=== PATIENT | male | born 1970 | race Caucasian/White ===

== ENCOUNTER → 2021-02-08 16:29 | Outpatient (CLI) | payer OTHER, SELFPAY ==
--- NOTE | 2021-02-08 16:44 | DI.RAD.S_ITS ---
PROCEDURE: XR FOOT RT MIN 3V INDICATIONS: RT FOOT/TOE PAIN TECHNIQUE: 3 views of the foot were acquired. COMPARISON: None. FINDINGS: Bones: No fractures or dislocations. There are yzur-yw-azvlyzqi osteoarthritic changes at the 1st metatarsophalangeal joint with mild to moderate joint space narrowing and subchondral sclerosis. There is also minimal narrowing of the 1st interphalangeal joint. No suspicious bony lesions. Soft tissues: There is a small calcification along the lateral aspect of the 1st metatarsophalangeal joint which may represent sequelae of a prior avulsion injury. There is mild soft tissue swelling medial to the 1st metatarsophalangeal joint. IMPRESSION: 1. 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 2. Small ossicle along the lateral aspect of the 1st MTP is nonspecific and may represent sequelae of a prior avulsion injury. Dictated by: Manav Anderson M.D. on 02/09/2021 at 11:12 Approved by: Manav Anderson M.D. on 02/09/2021 at 11:14
== END ==
PROVIDERS: Referring Provider Family Medicine; Visit Provider Family Medicine
DX: M79.674 Pain in right toe(s) (principal); L40.52 Psoriatic arthritis mutilans
CPT/HCPCS: 73630

== ENCOUNTER 2025-07-20 22:30 | Emergency (ER) | payer OTHER, SELFPAY ==
[2025-07-20 22:33] VITALS: BP 135/87; PULSE 63; RESP 18; TEMP 36.8; O2SAT 99; BMI 20.1
--- NOTE | 2025-07-20 22:47 | ED_ITS ---
HPI - Allergic Reaction General Chief complaint: Allergic Reaction Stated complaint: Allergic reaction Time Seen by Provider: 07/20/25 22:47 Source: patient Mode of arrival: Ambulatory History of Present Illness HPI narrative: Patient is a 55 year old man who presents to the ER again for concerns of an allergic reaction. He presented to walk-in clinic on 07/17 acute bacterial conjunctivitis and was prescribed neomycin polymyxin eye drops. He also had chronic sinusitis and was given a Medrol Dosepak and moxifloxacin at that time. He re-presented on 07/19 with concerns for possible allergic reaction which he stated was crusty eyes and itchy scalp and burning sensation with extreme irritation. His eyedrops were then transition to erythromycin ointment which he has been utilizing however he stated that his symptoms have worsened. Today he states that his entire body is itchy and his tongue feels burned. His eyes are burning and feels like there is sand in them. These symptoms are severe and he has not been able to sleep. He has been taking 24 hour Mary without symptomatic relief. Related Data Home Medications ?Medication ?Instructions ?Recorded ?Confirmed ezetimibe 10 mg-atorvastatin 40 mg tab PO 07/19/25 tablet moxifloxacin 400 mg tablet 400 mg PO DAILY 07/19/25 Previous Rx's ?Medication ?Instructions ?Recorded neomycin 1.75 mg-polymyxin 10,000 1 drp EYE-BOTH Q4H # 10 mL 07/17/25 unit-gramicidin 0.025mg/mL eye drops erythromycin 5 mg/gram (0.5 %) eye 0.5 inch EYE-BOTH Q 6H #3.5 grams 07/19/25 ointment hydroxyzine HCl 25 mg tablet 25 mg PO TID PRN itching #7 tabs 07/21/25 Allergies Allergy/AdvReac Type Severity Reaction Status Date / Time SULFA Allergy Mild Rash Uncoded 07/19/25 07:56 Review of Systems Review of Systems Narrative: See HPI. Patient History Medical History (Updated 07/21/25 @ 00:26 by Andra Rodriguez MD) Strain of mid-back Social History Smoking Status: Never smoker Smoking Status: Never smoker Exam Narrative Exam Narrative: Vital: Afebrile, all other vitals normal. Gen: Well-developed, well-nourished, no acute distress. Eyes: Sclera clear, EOMI without any pain. Eyelid inversion did not reveal any foreign bodies. No exudate or discharge. No periorbital edema or erythema. Skin: No rashes, hives, excoriations Card: Regular, no murmurs rubs or gallops Pulm: No increased work of breathing, clear to auscultation Abd: Soft nondistended nontender to palpation Ext: No peripheral edema in bilateral lower extremity Neuro: A&O x4, cranial nerves grossly intact, moving all 4 extremities spontaneously, gait normal gait Psych: Appropriate however he is very disturbed by the symptoms Initial Vital Signs Initial Vital Signs: Vital Signs Temperature 98.3 F 07/20/25 22:33 Pulse Rate 63 07/20/25 22:33 Respiratory Rate 18 07/20/25 22:33 Blood Pressure 135/87 07/20/25 22:33 Pulse Oximetry 99 07/20/25 22:33 Oxygen Delivery Method Room Air 07/20/25 22:33 Procedures [facility] [place] Procedure Name of Procedure: Procedure Performed: Fluorescein Staining of the Eye Technique: --Patient positioned comfortably. --Lower eyelid gently retracted. --Fluorescein strip moistened with sterile saline and lightly applied to the inferior conjunctival fornix. --Patient instructed to blink to distribute dye across the cornea. --Bayard blue light used to examine the cornea and conjunctiva. Findings: --Fluorescein uptake: None. There is no epithelial defect noted. Complications: None observed. Post Procedure Condition: --Patient tolerated the procedure well. --No immediate adverse reaction. Course Orders Ordered: Discontinued Medications Fluorescein Sodium (Fluorescein 1 Mg Strip) 1 mg EYE-BOTH NOW ONE Stop: 07/20/25 23:02 Last Admin: 07/20/25 23:19 Dose: 1 mg Documented By: KRYSTIAN Hydroxyzine HCl (Hydroxyzine Hcl 25 Mg Tablet) 25 mg PO NOW ONE Stop: 07/20/25 23:02 Last Admin: 07/20/25 23:19 Dose: 25 mg Documented By: KRYSTIAN Proparacaine HCl (Proparacaine 0.5% Ophth Alondra) 1 drops EYE-BOTH NOW ONE Stop: 07/20/25 23:02 Last Admin: 07/20/25 23:19 Dose: 1 drops Documented By: KRYSTIAN Vital Signs Vital signs: Vital Signs - 8 hr 07/20/25 22:33 Temperature 98.3 F Pulse Rate 63 Respiratory Rate 18 Blood Pressure 135/87 Pulse Oximetry 99 Oxygen Delivery Method Room Air MDM - Allergic Reaction MDM Narrative Medical decision making narrative: 55 year old male with recent history of chronic bacterial sinusitis and conjunctivitis returns to the ER for worsening concern for allergic reaction. Differential diagnosis: Allergic reaction, urticaria, anaphylaxis, other. 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 Declined labs. Imaging: None indicated. EKG: None. Consult: None. ED course: Patient returns to the ER, this is his 2nd visits for concern of allergic reaction. He has since stopped the loc mixed and polymyxin drops and given that his symptoms of itchiness and foreign sensation is size has increased also self discontinued the erythromycin ointment. In the ER, patient was hemodynamically normal. Physical exam included eye exam that did not reveal any foreign bodies with eyelid inversion. His pupils were equal round reactive. Fluorescein stain did not reveal any uptake. He was given hydroxyzine with minimum relief of his symptoms. I discussed with the patient that given his I examined to include sclera has significantly resolved, the likelihood that his conjunctivitis was likely viral, to stop all medications as he has been on multiple medications and is unclear as to what he is reacting to. I recommended that he continues hydroxyzine as needed, 24 hour Mary in the morning, Benadryl at night to help with sleep and itching in the evening, he may continue to utilize saline eyedrops. I provided proparacaine the patient given that he does not have any corneal ulcers, and instructed that he may use this for symptomatic relief for only 2-3 days. Patient was discharged in stable condition from the ER. Discharge Plan Departure Patient Disposition: Home Clinical Impression: Allergic reaction Instructions: DI for Adverse Drug Reaction -- Allergic Activity Restrictions/Additional Instructions: You were seen in the emergency department for possible allergic reaction to the medication you were previously prescribed. In the ER, fluorescein stain did not reveal any findings consistent with corneal abrasion. Your eye exam did not show any foreign bodies. You were given Atarax (hydrozaxine) to help with itching. Recommendation: -- Benadryl 25-50mg at night for the next 5-7 days -- Continue mary in the mornings -- Continue prednisone -- Continue saline eye lubricating drops -- STOP all topical antibiotics that were previously prescribed -- Recommend you see a digital associate in the next 2-3 days Prescriptions: New hydroxyzine HCl 25 mg tablet 25 mg PO TID PRN (Reason: itching) Qty: 7 0RF No Action [id number] 1.75 mg-10,000 unit-0.025mg/mL drops 1 drp EYE-BOTH Q4H Qty: 10 0RF moxifloxacin 400 mg tablet 400 mg PO DAILY ezetimibe-atorvastatin 10-40 mg tablet PO erythromycin 5 mg/gram (0.5 %) ointment 0.5 inch EYE-BOTH Q6H Qty: 3.5 0RF Stand Alone Forms: Patient Portal/API
[2025-07-20] MEDS: FLUORESCEIN 1 MG STRIP EYE-BOTH (23:19)
[2025-07-20] MEDS: PROPARACAINE 0.5% OPHTH SOL 1 DROPS EYE-BOTH (23:19)
== END 2025-07-21 00:40 | disposition home or self-care (01) ==
PROVIDERS: Emergency Provider Student in an Organized Health Care Education/Training Program
DX: L29.9 Pruritus, unspecified (principal); H10.9 Unspecified conjunctivitis; H57.13 Ocular pain, bilateral; T78.40XA Allergy, unspecified, initial encounter
CPT/HCPCS: 99283; A9270